=== PATIENT | female | born 1940 | race Caucasian/White ===

== ENCOUNTER 2018-05-08 16:24 | Emergency (ER) | payer MEDICARE, MEDICAID ==
[2018-05-08 16:41] VITALS: BMI 30.7
[2018-05-08 16:44] VITALS: PULSE 70; RESP 19; O2SAT 100
--- NOTE | 2018-05-08 17:03 | C.PDOC ---
History Of Present Illness 78yo female, with history of dementia (baseline confused), hypertension, comes to ER from home with reports of dizziness, generalized weakness. Patient noted to have started Aricept 1 week ago and states symptoms started after the me dication. SHe has no complaints of pain. Patient reports having an outpatient MRI yesterday and is unsure of results. Time Seen by Provider: 05/08/18 16:46 Chief Complaint (Nursing): Weakness/Neurological Deficit History Per: Patient History/Exam Limitations: no limitations Onset/Duration Of Symptoms: Days Past Medical History Reviewed: Historical Data, Nursing Documentation, Vital Signs Vital Signs: Last Vital Signs Temp 97.9 F 05/08/18 16:41 Pulse 70 05/08/18 16:41 Resp 19 05/08/18 16:41 BP 154/67 H 05/08/18 16:41 Pulse Ox 100 05/08/18 16:41 - Medical History PMH: Dementia, HTN Surgical History: No Surg Hx Family History: States: Unknown Family Hx - Social History Hx Tobacco Use: No Hx Alcohol Use: No Hx Substance Use: No - Immunization History Hx Influenza Vaccination: No Hx Pneumococcal Vaccination: No Review Of Systems Except As Marked, All Systems Reviewed And Found Negative. Constitutional: Positive for: Weakness Cardiovascular: Negative for: Chest Pain Respiratory: Negative for: Shortness of Breath Gastrointestinal: Negative for: Abdominal Pain Neurological: Positive for: Headache, Dizziness. Negative for: Weakness, Numbness Physical Exam - Physical Exam Appears: Non-toxic, No Acute Distress Skin: Normal Color Head: Atraumatic, Normacephalic Eye(s): bilateral: Normal Inspection Neck: Normal ROM, Supple Chest: Symmetrical Cardiovascular: Rhythm Regular Respiratory: Normal Breath Sounds Gastrointestinal/Abdominal: Normal Exam, Soft Back: Normal Inspection Extremity: Normal ROM Neurological/Psych: Oriented x3 ED Course And Treatment - Laboratory Results Result Diagrams: 05/08/18 17:12 05/08/18 17:12 O2 Sat by Pulse Oximetry: 100 (RA) Pulse Ox Interpretation: Normal Medical Decision Making Medical Decision Making: Impression: Dizziness, new medication use - ro metaoblic infecitous cardaic, med se Plan: -- Labs -- CT Head -- Urinalysis -- EKG labs neg. will treat ua. discussed with pmd agrees with outpt fu. Disposition - Disposition Disposition: HOME/ ROUTINE Disposition Time: 18:00 Condition: STABLE Additional Instructions: follow up with your doctor/clinic. return to er with worsening symtposm or concerns. Prescriptions: Sulfamethoxazole/Trimethoprim [Bactrim DS 800 mg-160 mg] 1 tab PO BID #14 tab Instructions: Urinary Tract Infections in Adults, Dizziness, Nonvertigo, (DC) Forms: [facility] ([place]) - Clinical Impression Clinical Impression: Dizziness, UTI (urinary tract infection) - Scribe Statement The provider has reviewed the documentation as recorded by the Chelsea Roblero Provider Attestation: All medical record entries made by the Chelsea were at my direction and personally dictated by me. I have reviewed the chart and agree that the record a ccurately reflects my personal performance of the history, physical exam, medical decision making, and the department course for this patient. I have also personally directed, reviewed, and agree with the discharge instructions and disposition.
[2018-05-08 17:16] LABS: BASO # 0.1 K/uL (0.0-0.2); BASO % 0.8 % (0.0-2.0); EOS # 0.1 K/uL (0.0-0.7); EOS % 1.4 % (0.0-4.0); HEMOGLOBIN 12.4 g/dL (11.0-16.0); LYMPH # 2.2 K/uL (1.0-4.3); LYMPH % 33.2 % (20.0-40.0); MEAN CELL VOLUME 81.7 fL (81.0-99.0); MEAN CORPUSCULAR HEMOGLOBIN 26.3 pg (27.0-31.0); MEAN CORPUSCULAR HGB CONC 32.1 g/dL (33.0-37.0); MONO # 0.6 K/uL (0.0-0.8); MONO % 8.8 % (0.0-10.0); NEUT # 3.7 K/uL (1.8-7.0); NEUT % 55.8 % (50.0-75.0); RBC 4.74 Mil/uL (3.80-5.20); RED CELL DISTRIBUTION WIDTH 14.6 % (11.5-14.5); WHITE BLOOD COUNT 6.6 K/uL (4.8-10.8)
[2018-05-08 17:33] LABS: PROTHROMBIN TIME 10.6 SECONDS (9.7-12.2)
[2018-05-08 17:38] LABS: ALB/GLOB RATIO 1.4 (1.0-2.1); ALBUMIN 4.1 g/dL (3.5-5.0); ALT/SGPT 18 U/L (9-52); AST/SGOT 33 U/L (14-36); BLOOD UREA NITROGEN 18 mg/dL (7-17); CALCIUM 9.3 mg/dl (8.6-10.4); GFR NON-AFRICAN AMERICAN > 60
[2018-05-08 17:51] LABS: SQUAMOUS EPITHIAL 1 /hpf (0-5); URINE BACTERIA OCC (<OCC); URINE BILIRUBIN NEGATIVE (NEGATIVE); URINE BLOOD NEGATIVE (NEGATIVE); URINE CLARITY Clear (Clear); URINE COLOR Straw (YELLOW); URINE GLUCOSE (UA) NORMAL (Normal); URINE LEUKOCYTE ESTERASE 2+ Leu/uL (Negative); URINE PROTEIN NEGATIVE (NEGATIVE); URINE UROBILINOGEN NORMAL mg/dL (0.2-1.0)
--- NOTE | 2018-05-08 18:12 | CT ---
Date of service: 05/08/2018 PROCEDURE: CT HEAD WITHOUT CONTRAST. HISTORY: dizziness/generalized weakness COMPARISON: Noncontrast head CT performed 02/07/16 TECHNIQUE: Axial computed tomography images were obtained through the head/brain without intravenous contrast. Radiation dose: Total exam DLP = 876.27 mGy-cm. This CT exam was performed using one or more of the following dose reduction techniques: Automated exposure control, adjustment of the mA and/or kV according to patient size, and/or use of iterative reconstruction technique. FINDINGS: HEMORRHAGE: No intracranial hemorrhage. BRAIN: Diffuse atrophy with prominence of the ventricles and sulci noted. No mass effect or edema. Dense intracranial atherosclerosis. Mild scattered white matter hypodensities, which are nonspecific, but often seen with chronic microvascular ischemic disease. Please note that MRI with diffusion imaging is more sensitive in the detection of acute ischemic event. VENTRICLES: No hydrocephalus. CALVARIUM: Unremarkable. PARANASAL SINUSES: Unremarkable as visualized. No significant inflammatory changes. MASTOID AIR CELLS: Unremarkable as visualized. No inflammatory changes. OTHER FINDINGS: None. IMPRESSION: Generalized atrophy. Nonspecific white matter changes.
[2018-05-08 18:48] VITALS: BP 150/70; TEMP 98.2
--- NOTE | 2018-05-09 10:28 | RAD ---
HISTORY: chest pain COMPARISON: Chest x-ray performed 11/13/14 TECHNIQUE: Chest, one view. FINDINGS: LUNGS: No focal consolidation. Re-identified probable 4 mm calcified granuloma, right lower lobe. Please note that chest x-ray has limited sensitivity for the detection of pulmonary masses. PLEURA: No significant pleural effusion identified. No definite pneumothorax . CARDIOVASCULAR: Cardiomegaly. Ectatic aorta. Atherosclerotic calcifications. OSSEOUS STRUCTURES: No acute osseous abnormality identified. VISUALIZED UPPER ABDOMEN: Unremarkable. OTHER FINDINGS: None. IMPRESSION: Cardiomegaly. No focal consolidation identified.
== END 2018-05-08 18:55 | disposition home or self-care (01) ==
LOC: C.ER 16:24
DX: N39.0 Urinary tract infection, site not specified (principal); R42 Dizziness and giddiness; I10 Essential (primary) hypertension; F03.90 Unspecified dementia, unspecified severity, without behavioral disturbance, psychotic disturbance, mood disturbance, and anxiety

== ENCOUNTER 2018-05-26 09:13 | Outpatient (CLI) | payer MEDICARE, MEDICAID | END 2018-05-26 09:14 | disposition home or self-care (01) | LOC: C.MAMMO 09:14 | DX: Z12.31 Encounter for screening mammogram for malignant neoplasm of breast (principal) ==